=== PATIENT | male | born 1990 | race African-American/Black ===

== ENCOUNTER 2022-03-29 18:47 | Emergency (ER) | payer SELFPAY | END 2022-03-29 19:49 | disposition home or self-care (01) | LOC: CSHERS 18:47 | DX: R00.2 Palpitations (principal); F17.210 Nicotine dependence, cigarettes, uncomplicated | CPT/HCPCS: 93005 ==

== ENCOUNTER 2022-04-14 12:23 | Emergency (ER) | payer SELFPAY | END 2022-04-14 12:45 | disposition home or self-care (01) | LOC: CSHERS 12:23 | DX: Z02.89 Encounter for other administrative examinations (principal); F17.210 Nicotine dependence, cigarettes, uncomplicated | CPT/HCPCS: 99283 ==